=== PATIENT | female | born 1965 | race Caucasian/White ===

== ENCOUNTER → 2016-11-19 | Outpatient (CLI) | payer BC ==
[~2016-11-19] MED LIST: COLESTID PO; EFFEXOR XR PO; EFFEXOR75 M2 PO; FERROUS SULFATE PO; FLEXERIL PO; GABAPENTIN300 MG PO; LIPITOR40 MG PO; LISINOPRIL-HCTZ1 T19 PO; LOMOTIL WHITE2.5 M1 PO; MOBIC PO; VITAMIN D2000 UNIT PO
--- NOTE | ~2016-11-19 | CT55 ---
[facility] A Service of [facility] RADIOLOGY TEXT RESULTS PATIENT: KATERYNA STACY LOCATION: [facility] : 69 UNIT #: [id number] AGE: [address]: Liv Navarro MD SEX: F ORDER DR: [id number] [facility] [address] [place], [place] [address] [id number] O MR#: [id number] Acc #: [id number] NAME: KATERYNA STACY : 1965 SEX: F STUDY DATE/TIME: 11/19/2016 11:53 UNIT: [facility] ROOM: STUDY DESCRIPTION: CT Chest W Con Attending Physician: Liv Navarro M.D. Referring Physician: Liv Navarro M.D. Ordering Physician: Liv Navarro M.D. Primary Care Physician: Liv Navarro M.D. MEDICAL IMAGING REPORT This report is preliminary unless electronic signature is present EXAM Chest CT, 11/19 INDICATION Edema in the legs for 6 months. Shortness of air and left side chest pain for 2 months. Chest x-ray showing possible pleural effusion on 11/05/2016. TECHNIQUE Axial images were obtained through the chest following IV contrast administration. Multiplanar reformats were obtained. This CT exam was performed with one or more of the following radiation dose reduction techniques: automatic exposure control, adjustment of mA and/or kV according to patient size, and iterative reconstruction. COMPARISON No comparison chest CT. FINDINGS No pleural or pericardial effusion is seen. There is no adenopathy. There is a small hiatal hernia. Lungs are clear except for some mild dependent atelectasis in the lower lobes. For description of findings in the upper abdomen, please see the abdomen CT report dictated separately. The bones are within normal limits. IMPRESSION Minimal dependent atelectasis in both lungs, otherwise no active disease in the chest. Dictated by... Luis Love Jr., M.D. THIS IS AN ELECTRONICALLY VERIFIED REPORT [facility] A Service of [facility] RADIOLOGY TEXT RESULTS PATIENT: KATERYNA STACY LOCATION: [facility]T #: [id number] : 69 UNIT #: [id number] AGE: [address]: Liv Navarro MD SEX: F ORDER DR: Luis Love Jr., M.D. at 11/19/2016 6:28 PM [place] TD: 11/19/2016 16:35 JOB #: [id number] MEDICAL IMAGING REPORT Page 1 of 1 COPY
--- NOTE | ~2016-11-19 | CT5 ---
[facility] A Service of [facility] RADIOLOGY TEXT RESULTS PATIENT: KATERYNA STACY LOCATION: [facility] : 69 UNIT #: [id number] AGE: [address]: Liv Navarro MD SEX: F ORDER DR: [id number] [place] [id number] [facility]. [place], [place] [address] [id number] O MR#: [id number] Acc #: [id number] NAME: KATERYNA STACY : 1965 SEX: F STUDY DATE/TIME: 11/19/2016 11:53 UNIT: [facility] ROOM: STUDY DESCRIPTION: CT Abdomen W Cont Attending Physician: Liv Navarro M.D. Referring Physician: Liv Navarro M.D. Ordering Physician: Liv Navarro M.D. Primary Care Physician: Liv Navarro M.D. MEDICAL IMAGING REPORT This report is preliminary unless electronic signature is present EXAM CT abdomen, 11/19 INDICATION Edema in the legs for 6 months. Nausea and bloating for 2 months. TECHNIQUE Axial images were obtained through the abdomen following oral and IV contrast administration. Multiplanar reformats were obtained. This CT exam was performed with one or more of the following radiation dose reduction techniques: automatic exposure control, adjustment of mA and/or kV according to patient size, and iterative reconstruction. COMPARISON No comparison. FINDINGS For a description of findings in the lung bases, see the chest CT report dictated separately. Gallbladder surgically absent. There is no biliary obstruction. There is a right upper pole renal cyst. There is a stone in the left renal pelvis measuring up to 13.0 mm in size. No hydronephrosis identified on either side. The solid organs are otherwise within normal limits. Patient is status post gastric bypass. Visualized GI tract is otherwise normal. There is no free fluid or adenopathy. IMPRESSION 1. No acute findings in the abdomen. 2. Status post gastric bypass and cholecystectomy. No bowel obstruction is seen. No free fluid. 3. Nonobstructing stone in the left renal pelvis. Dictated by... [facility] A Service of [facility] RADIOLOGY TEXT RESULTS PATIENT: KATERYNA STACY LOCATION: [facility] : 69 UNIT #: [id number] AGE: [address]: Liv Navarro MD SEX: F ORDER DR: Luis Love Jr., M.D. THIS IS AN ELECTRONICALLY VERIFIED REPORT Luis Love Jr., M.D. at 11/19/2016 6:28 PM WILFREDO/uday TD: 11/19/2016 16:40 JOB #: [id number] MEDICAL IMAGING REPORT Page 1 of 1 COPY
[2016-11-19 16:26] LABS: POC - CREATININE 0.83 mg/dL (0.44-1.03); POC - GFR >60.0 mL/min (>60)
== END | disposition home or self-care (01) ==
LOC: CECH 09:26
PROVIDERS: Family Medicine
DX: J98.6 Disorders of diaphragm (principal); R93.8 Abnormal findings on diagnostic imaging of other specified body structures; R60.9 Edema, unspecified; N20.0 Calculus of kidney; Z98.84 Bariatric surgery status; Z90.49 Acquired absence of other specified parts of digestive tract
CPT/HCPCS: 71260; 74160; 82565; 93306; Q9967